=== PATIENT | female | born 1960 | race Caucasian/White ===

== ENCOUNTER 2017-03-17 09:00 | Emergency (ER) | payer BC ==
[2017-03-17 09:16] VITALS: O2SAT 99
[2017-03-17] MEDS ORDERED: Sodium Chloride 0.9% 1,000 ML IV ONE (09:36)
[2017-03-17] MEDS ORDERED: Sodium Chloride 0.9% 1,000 ML ONE (09:46)
[2017-03-17 09:50] LABS: BASO % 0.7 % (0.0-2.0); EOS # 0.1 K/uL (0.0-0.7); EOS % 1.4 % (0.0-4.0); HEMATOCRIT 41.5 % (34.0-47.0); LYMPH # 1.1 K/uL (1.0-4.3); MEAN CELL VOLUME 78.7 fL (81.0-99.0); MEAN CORPUSCULAR HEMOGLOBIN 26.5 pg (27.0-31.0); MEAN CORPUSCULAR HGB CONC 33.7 g/dL (33.0-37.0); MEAN PLATELET VOLUME 7.9 fL (7.2-11.7); MONO # 0.2 K/uL (0.0-0.8); MONO % 5.2 % (0.0-10.0); NRBC % 0.1 % (0.0-2.0); RED CELL DISTRIBUTION WIDTH 15.2 % (11.5-14.5); WHITE BLOOD COUNT 4.7 K/uL (4.8-10.8)
[2017-03-17 09:58] LABS: CHLORIDE 100 mmol/L (98-107); SODIUM 142 mmol/L (132-148)
[2017-03-17 09:59] LABS: POTASSIUM 3.9 mmol/L (3.6-5.2)
[2017-03-17 10:01] LABS: ALKALINE PHOSPHATASE 94 U/L (38-126); ALT/SGPT 24 U/L (9-52); AST/SGOT 20 U/L (14-36); BILIRUBIN,TOTAL 0.7 mg/dL (0.2-1.3); BLOOD UREA NITROGEN 12 mg/dL (7-17); CALCIUM 9.5 mg/dl (8.6-10.4); CARBON DIOXIDE 23 mmol/L (22-30); GFR AFRICAN-AMERICAN > 60; GLUCOSE,RANDOM 102 mg/dL (65-105); TOTAL PROTEIN 9.4 g/dL (6.3-8.3)
[2017-03-17 10:07] LABS: RBC URINE 1 /hpf (0-3); URINE BILIRUBIN NEGATIVE (NEGATIVE); URINE BLOOD NEGATIVE (NEGATIVE); URINE COLOR Straw (YELLOW); URINE GLUCOSE (UA) NORMAL (Normal); URINE KETONE NEGATIVE (NEGATIVE); URINE LEUKOCYTE ESTERASE NEG Leu/uL (Negative); URINE PROTEIN NEGATIVE (NEGATIVE); URINE UROBILINOGEN NORMAL mg/dL (0.2-1.0); WBC URINE 1 /hpf (0-5)
--- NOTE | 2017-03-17 10:54 | C.PDOC ---
Time Seen by Provider: 03/17/17 09:11 Chief Complaint (Nursing): Abdominal Pain Past Medical History Vital Signs: Last Vital Signs Temp 98.7 F 03/17/17 09:13 Pulse 96 H 03/17/17 09:13 Resp 20 03/17/17 09:13 BP 164/98 H 03/17/17 09:13 Pulse Ox 99 03/17/17 09:13 - Medical History PMH: Hypercholesterolemia Family History: States: Unknown Family Hx - Social History Hx Tobacco Use: No Hx Alcohol Use: No Hx Substance Use: No - Immunization History Hx Tetanus Toxoid Vaccination: No Hx Influenza Vaccination: Yes (3 months) Hx Pneumococcal Vaccination: No ED Course And Treatment - Laboratory Results Result Diagrams: 03/17/17 09:42 03/17/17 09:42 O2 Sat by Pulse Oximetry: 99 Disposition Counseled Patient/Family Regarding: Studies Performed, Diagnosis, Need For Followup, Rx Given - Disposition Referrals: Guille Paz MD [Medical Doctor] - Olvin Keller MD [Staff Provider] - Disposition: HOSPITALIZED Disposition Time: 10:55 Condition: STABLE Additional Instructions: USTED NECESITA SEGUIR CON EL GASTROENTERLOGO DENTRO DE 1 SEMANA USE MEDICAMENTOS TODOS LOS ROSAS EVITE LOS ALIMENTOS O BEBIDAS PICANTE / ACIDICOS DEVUELVA A LA BRAYDEN DE EMERGENCIA SI LOS SNTOMAS EMPEORARAN Prescriptions: Pantoprazole [Protonix EC Tab] 20 mg PO DAILY #30 ect Instructions: Epigastric Pain (ED) Print Language: SAMI - Clinical Impression Clinical Impression: Dyspepsia
--- NOTE | 2017-03-17 10:55 | C.PDOC ---
History Of Present Illness 56 year old female presents to the ED for evaluation of epigastric abdominal pain associated with nausea which began around 1 week ago. Patient describes her pain as a sharp and burning sensation that is constant and non-radiating. Patient reports history of positive H. Pylori, was treated several months ago by her PMD. Symptoms had improved until they reostarted earlier this week. Patient does not have a GI doctor, and has never had an endoscopy. Patient denies chest pain, shortness of breath, vomiting, diarrhea, fever. Time Seen by Provider: 03/17/17 09:11 Chief Complaint (Nursing): Abdominal Pain History Per: Patient History/Exam Limitations: no limitations Onset/Duration Of Symptoms: Days (1 week ) Current Symptoms Are (Timing): Still Present Location Of Pain/Discomfort: Epigastric Radiation Of Pain To:: None Quality Of Discomfort: Dull, Burning, "Pain" Associated Symptoms: Nausea. denies: Vomiting, Diarrhea, Chest Pain Additional History Per: Patient Abnormal Vaginal Bleeding: No Past Medical History Reviewed: Historical Data, Nursing Documentation, Vital Signs Vital Signs: Last Vital Signs Temp 98.6 F 03/17/17 11:05 Pulse 82 03/17/17 11:05 Resp 16 03/17/17 11:05 BP 118/76 03/17/17 11:05 Pulse Ox 99 03/17/17 11:05 - Medical History PMH: Hypercholesterolemia Surgical History: No Surg Hx Family History: States: No Known Family Hx - Social History Hx Tobacco Use: No Hx Alcohol Use: No Hx Substance Use: No - Immunization History Hx Tetanus Toxoid Vaccination: No Hx Influenza Vaccination: Yes (3 months) Hx Pneumococcal Vaccination: No Review Of Systems Except As Marked, All Systems Reviewed And Found Negative. Cardiovascular: Negative for: Chest Pain Respiratory: Negative for: Shortness of Breath Gastrointestinal: Positive for: Nausea, Abdominal Pain (epigastric ). Negative for: Vomiting, Diarrhea Genitourinary: Negative for: Dysuria Skin: Negative for: Rash Physical Exam - Physical Exam Appears: Well, Non-toxic, No Acute Distress, Other (mildly uncomfortable ) Skin: Normal Color, Warm, Dry Eye(s): bilateral: Normal Inspection Oral Mucosa: Moist Neck: Supple Cardiovascular: Rhythm Regular Respiratory: Normal Breath Sounds, No Rales, No Rhonchi, No Wheezing Gastrointestinal/Abdominal: Bowel Sounds, Soft, Tenderness (mild epigastric TTP) , No Guarding, No Rebound, No Other ((-) Mathews's and (-) McBurney's) Extremity: Normal ROM Neurological/Psych: Oriented x3 Gait: Steady ED Course And Treatment - Laboratory Results Result Diagrams: 03/17/17 09:42 03/17/17 09:42 O2 Sat by Pulse Oximetry: 99 (on RA) Pulse Ox Interpretation: Normal Progress Note: Blood work, UA ordered and reviewed. Patient given IV Pepcid, IV Zofran, IV Ns bolus. Reevaluation Time: 10:35 Reassessment Condition: Improved (On reassessment, patient is resting comfortably and states she feels better. On exam, abdomen is soft and nontender. Blood work, UA, unremarkable. Patient given Rx for protonix and was instructed to follow up with PMD in 1-2 days, and with GI within 1 week. She understands she should return to ED if symptoms worsen.) Disposition Counseled Patient/Family Regarding: Studies Performed, Diagnosis, Need For Followup, Rx Given - Disposition Referrals: Guille Paz MD [Medical Doctor] - Olvin Keller MD [Staff Provider] - Disposition: HOSPITALIZED Disposition Time: 10:35 Condition: STABLE Additional Instructions: USTED NECESITA SEGUIR CON EL GASTROENTERLOGO DENTRO DE 1 SEMANA USE MEDICAMENTOS TODOS LOS ROSAS EVITE LOS ALIMENTOS O BEBIDAS PICANTE / ACIDICOS DEVUELVA A LA BRAYDEN DE EMERGENCIA SI LOS SNTOMAS EMPEORARAN Prescriptions: Pantoprazole [Protonix EC Tab] 20 mg PO DAILY #30 ect Instructions: Epigastric Pain (ED) Forms: [employer] (Mosotho) Print Language: EAST TIMORESE - Clinical Impression Clinical Impression: Dyspepsia - Scribe Statement The provider has reviewed the documentation as recorded by the Scribe (Bertha Chavez) Provider Attestation: All medical record entries made by the Scribe were at my direction and personally dictated by me. I have reviewed the chart and agree that the record accurately reflects my personal performance of the history, physical exam, medical decision making, and the department course for this patient. I have also personally directed, reviewed, and agree with the discharge instructions and disposition.
[2017-03-17 11:16] VITALS: BP 118/76; PULSE 82; RESP 16; TEMP 98.6
== END 2017-03-17 11:05 | disposition short-term general hospital (02) ==
LOC: C.ER 09:00
DX: R10.13 Epigastric pain (principal)
CPT/HCPCS: 80053; 81001; 83690; 85025; 96361; 96374; 96375; 99284; J2405; J7040